=== PATIENT | female | born 1995 | race African-American/Black ===

== ENCOUNTER 2017-12-09 13:51 | Emergency (ER) | payer BC ==
[~2017-12-09] VITALS: Ht 180.3 cm; Wt 102.1 kg
[2017-12-09 14:07] VITALS: BP 107/77
[2017-12-09] MEDS ORDERED: cefTRIAXone SOD 1,000 MG VL IM ONE (16:30)
[2017-12-09] MEDS ORDERED: ACETAMINOPHEN 500 MG TAB PO ONE (16:30)
== END 2017-12-09 17:14 | disposition home or self-care (01) ==
LOC: ER 13:51
DX: J03.90 Acute tonsillitis, unspecified (principal)
CPT/HCPCS: 96372; 99283; J0696